=== PATIENT | male | born 1985 | race Caucasian/White ===

== ENCOUNTER 2017-08-09 10:20 | Emergency (ER) | payer SELFPAY ==
[~2017-08-09] VITALS: Ht 175.3 cm; Wt 86.0 kg
[2017-08-09 10:55] VITALS: BP 142/87
[2017-08-09] MEDS ORDERED: PERTUSS(ACELL),DIPH,TET VAC/PF 0.5 ML VIAL IM ONE (11:15)
== END 2017-08-09 11:18 | disposition home or self-care (01) ==
LOC: EMS 10:22 → EDBD 10:22 → EMS 11:18
DX: S01.01XA Laceration without foreign body of scalp, initial encounter (principal); L02.811 Cutaneous abscess of head [any part, except face]; R03.0 Elevated blood-pressure reading, without diagnosis of hypertension; Z87.891 Personal history of nicotine dependence; W45.8XXA Other foreign body or object entering through skin, initial encounter; Y93.89 Activity, other specified; Y92.89 Other specified places as the place of occurrence of the external cause; Y99.8 Other external cause status
CPT/HCPCS: 90471; 90715; 99283

== ENCOUNTER 2017-08-24 09:31 | Emergency (ER) | payer SELFPAY ==
[~2017-08-24] VITALS: Ht 175.3 cm; Wt 90.9 kg
[2017-08-24 09:41] VITALS: BP 121/70
== END 2017-08-24 10:31 | disposition left against medical advice (07) ==
LOC: EMS 09:31
DX: M79.641 Pain in right hand (principal); Z53.21 Procedure and treatment not carried out due to patient leaving prior to being seen by health care provider

== ENCOUNTER 2017-08-24 18:06 | Emergency (ER) | payer MEDICAID ==
[~2017-08-24] VITALS: Ht 175.3 cm; Wt 90.9 kg
[2017-08-24 19:18] VITALS: BP 119/72
== END 2017-08-24 19:35 | disposition home or self-care (01) ==
LOC: EMS 18:07
DX: S61.212D Laceration without foreign body of right middle finger without damage to nail, subsequent encounter (principal); L08.89 Other specified local infections of the skin and subcutaneous tissue; X58.XXXD Exposure to other specified factors, subsequent encounter
CPT/HCPCS: 99283

== ENCOUNTER 2022-11-27 13:18 | Emergency (ER) | payer MEDICAID, OTHER ==
[~2022-11-27] VITALS: Ht 175.3 cm; Wt 90.9 kg
[2022-11-27 13:23] VITALS: BP 149/86
== END 2022-11-27 16:24 | disposition left against medical advice (07) ==
LOC: EMS 13:19
DX: F15.90 Other stimulant use, unspecified, uncomplicated (principal); Z53.21 Procedure and treatment not carried out due to patient leaving prior to being seen by health care provider
CPT/HCPCS: 99281; Z7502